=== PATIENT | female | born 1960 | race Caucasian/White ===

== ENCOUNTER → 2017-01-30 | Outpatient (CLI) | payer BC | LOC: KOH-I 12:40 | DX: M79.671 Pain in right foot (principal); Z88.0 Allergy status to penicillin | CPT/HCPCS: 73630 ==

== ENCOUNTER → 2021-03-16 | Outpatient (CLI) | payer BC ==
[~2021-03-16] MED LIST: ACETAMINOPHEN650 MG PR; DICLOFENAC SOD100 GM TOP; EFFEXOR XR75 MG PO; HYZAAR 100-251 EACH PO; SYNTHROID88 MCG PO
== END ==
LOC: HEART 5 13:30
DX: R55 Syncope and collapse (principal); I65.23 Occlusion and stenosis of bilateral carotid arteries; I37.1 Nonrheumatic pulmonary valve insufficiency; R93.1 Abnormal findings on diagnostic imaging of heart and coronary circulation
CPT/HCPCS: 93306; 93880

== ENCOUNTER 2021-09-06 04:23 | Emergency (ER) | payer BC ==
[2021-09-06 07:49] LABS: HEMOGLOBIN 12.8 gm/dl (12.3-15.3); RED BLOOD COUNT 4.6 M/UL (4.00-5.10); WHITE BLOOD COUNT 8.5 K/UL (4.5-11.0)
[2021-09-06 08:03] LABS: BUN/CREATININE RATIO 15 (0-10)
== END 2021-09-06 09:23 | disposition home or self-care (01) ==
LOC: ER1 04:23
PROVIDERS: Physician Assistant
DX: R07.9 Chest pain, unspecified (principal); E78.5 Hyperlipidemia, unspecified; I10 Essential (primary) hypertension; E07.9 Disorder of thyroid, unspecified; Z88.0 Allergy status to penicillin
CPT/HCPCS: 71045; 80053; 82550; 82553; 83874; 84484; 85025; 93005; 99285